=== PATIENT | female | born 1995 | race Caucasian/White ===

== ENCOUNTER 2019-10-17 01:06 | Emergency (ER) | payer MEDICAID ==
[~2019-10-17] VITALS: Ht 157.5 cm; Wt 76.4 kg
[2019-10-17] MEDS ORDERED: normal saline 1000ML IV soln IVB ONE (01:30)
[2019-10-17] MEDS ORDERED: ketorolac tromethamine 15mg/ml inj. IV ONE (01:30)
[2019-10-17] MEDS ORDERED: pantoprazole 40 MG vial IV ONE (01:30)
[2019-10-17] MEDS ORDERED: ondansetron/PF 4mg/2ml inj IV ONE (01:30)
[2019-10-17] MEDS ORDERED: morphine 4 MG/ML inj SYRINge IV ONE (01:55)
[2019-10-17 02:03] LABS: HCG SERUM QL NEGATIVE
[2019-10-17 02:10] LABS: ALANINE AMINOTRANSFERASE 11 U/L (12-78); ALBUMIN 3.8 G/DL (3.4-5.0); ALBUMIN/GLOBULIN RATIO 0.9 (1.1-1.5); ALKALINE PHOSPHATASE 81 IU/L (46-116); ANION GAP 10 (8-16); ASPARTATE AMINO TRANSFERASE 13 U/L (10-37); BASOPHILS % (AUTO) 0.3 % (0-1); BILIRUBIN,TOTAL 0.2 MG/DL (0.1-1.0); CALCIUM 8.8 MG/DL (8.5-10.1); CHLORIDE 105 MMOL/L (99-107); CREATININE 0.86 MG/DL (0.40-0.90); EOSINOPHILS # (AUTO) 0.1 X10'3 (0-0.9); EOSINOPHILS % (AUTO) 0.9 % (0-6); GLUCOSE 96 MG/DL (70-104); HEMATOCRIT 41.7 % (35.0-45.0); HEMOGLOBIN 14.3 g/dl (12.0-16.0); LYMPHOCYTES # (AUTO) 4.1 X10'3 (1.1-4.8); LYMPHOCYTES % (AUTO) 35.7 % (21-51); MEAN CORPUSCULAR HEMOGLOBIN 29.6 PG (27.0-31.0); MEAN CORPUSCULAR HGB CONC 34.3 g/dL (33.0-36.5); MEAN CORPUSCULAR VOLUME 86.5 FL (78-98); MEAN PLATELET VOLUME 8.6 FL (7.4-10.4); MONOCYTES # (AUTO) 0.9 X10'3 (0-0.9); MONOCYTES % (AUTO) 7.4 % (2-12); NEUTROPHILS # (AUTO) 6.5 X10'3 (1.8-7.7); NEUTROPHILS % (AUTO) 55.7 % (42-75); PLATELET COUNT 256 X10'3 (140-440); POTASSIUM 4.2 MMOL/L (3.5-5.1); RED BLOOD COUNT 4.83 X10'6 (4.20-5.60); RED CELL DISTRIBUTION WIDTH 13.2 % (11.5-14.5); SODIUM 143 MMOL/L (135-145); TOTAL CARBON DIOXIDE 28.3 MMOL/L (24-32); TOTAL PROTEIN 7.9 G/DL (6.4-8.2); WHITE BLOOD COUNT 11.6 X10'3 (4.5-11.0); eGFR 81 ML/MIN
[2019-10-17 02:23] LABS: BLOOD UREA NITROGEN 13 MG/DL (7-18); BUN/CREATININE RATIO 15.1 (6.6-38.0)
[2019-10-17 03:15] LABS: CLARITY,URINE CLEAR (Clear); COLOR,URINE YELLOW (Yellow); GLUCOSE, URINE NEGATIVE (Neg); KETONES,URINE NEGATIVE (Neg); LEUKOCYTE ESTERASE ,URINE NEGATIVE (Neg); NITRITES, URINE NEGATIVE (Neg); OCCULT BLOOD,URINE NEGATIVE (Neg); PH,URINE 5.5 (4.8-8.0); PROTEIN,URINE NEGATIVE (Neg); UROBILINOGEN,URINE 0.2 E.U/dL (0.2-1.0)
[2019-10-17 03:16] LABS: UA COLLECTION TYPE CLN CATCH MIDSTREAM
[2019-10-17 03:42] VITALS: BP 114/57
== END 2019-10-17 03:43 | disposition home or self-care (01) ==
LOC: ER 01:07
DX: R10.11 Right upper quadrant pain (principal); R11.10 Vomiting, unspecified; Z88.8 Allergy status to other drugs, medicaments and biological substances
CPT/HCPCS: 36415; 80053; 81003; 84703; 85025; 96361; 96374; 96375; 99285; C9113; J1885; J2405; J7030